=== PATIENT | male | born 1970 | race Caucasian/White ===

== ENCOUNTER 2023-02-15 08:31 | Outpatient (CLI) | payer BC, SELFPAY ==
--- NOTE | 2023-02-15 09:15 | EST_ITS ---
Patient Info Name: Noah Marshall Age: 52 years : 1970 Gender: Male Ht: 74 in Wt: 254 lbs BSA: 2.48 m2 Technical Quality: Good Exam Date: 02/15/2023 8:45 AM Exam Location: [facility] Patient Status: Outpatient Admit Date: 02/15/2023 Staff Ordering Physician: Alf Cm MD Attending Provider: Alf Cm MD Exam Type: CA stress test treadmill Study Info An exercise stress test was performed. Summary 1. 1. Negative Hemanth exercise stress test for ischemic ST changes by ECG criteria. 2. 2. Good functional capacity, achieving 10 METs of workload. 3. 3. Baseline hypertension. 4. 4. Appropriate HR response to exercise. 5. 5. Appropriate HR recovery at 1 minute post exercise. 6. 6. No imaging with stress testing. Protocol: Hemanth Stress ECG Details Stage: REST Duration (min): 2 min : 26 sec Speed (mph): 0.0 Grade (%): 0 HR (bpm): 75 SBP (mmHg): 154 DBP (mmHg): 96 METS: --- Stage: REST Duration (min): 2 min : 38 sec Speed (mph): 0.0 Grade (%): 0 HR (bpm): 74 SBP (mmHg): 154 DBP (mmHg): 96 METS: --- Stage: REST Duration (min): 24 min : 5 sec Speed (mph): 0.0 Grade (%): 0 HR (bpm): 91 SBP (mmHg): 154 DBP (mmHg): 96 METS: --- Stage: STAGE 1 Duration (min): 1 min : 0 sec Speed (mph): 1.7 Grade (%): 10 HR (bpm): 95 SBP (mmHg): 154 DBP (mmHg): 96 METS: --- Stage: STAGE 1 Duration (min): 2 min : 0 sec Speed (mph): 1.7 Grade (%): 10 HR (bpm): 106 SBP (mmHg): 154 DBP (mmHg): 96 METS: --- Stage: STAGE 1 Duration (min): 3 min : 0 sec Speed (mph): 1.7 Grade (%): 10 HR (bpm): 110 SBP (mmHg): 183 DBP (mmHg): 95 METS: --- Stage: STAGE 2 Duration (min): 1 min : 0 sec Speed (mph): 2.5 Grade (%): 12 HR (bpm): 122 SBP (mmHg): 183 DBP (mmHg): 95 METS: --- Stage: STAGE 2 Duration (min): 2 min : 0 sec Speed (mph): 2.5 Grade (%): 12 HR (bpm): 135 SBP (mmHg): 183 DBP (mmHg): 95 METS: --- Stage: STAGE 2 Duration (min): 3 min : 0 sec Speed (mph): 2.5 Grade (%): 12 HR (bpm): 139 SBP (mmHg): 177 DBP (mmHg): 93 METS: --- Stage: STAGE 3 Duration (min): 1 min : 0 sec Speed (mph): 3.4 Grade (%): 14 HR (bpm): 155 SBP (mmHg): 177 DBP (mmHg): 93 METS: --- Stage: STAGE 3 Duration (min): 2 min : 0 sec Speed (mph): 3.4 Grade (%): 14 HR (bpm): 167 SBP (mmHg): 177 DBP (mmHg): 93 METS: --- Stage: STAGE 3 Duration (min): 2 min : 30 sec Speed (mph): 3.4 Grade (%): 14 HR (bpm): 172 SBP (mmHg): 179 DBP (mmHg): 94 METS: --- Stage: RECOVERY Duration (min): 0 min : 29 sec Speed (mph): 0.0 Grade (%): 0 HR (bpm): 158 SBP (mmHg): 179 DBP (mmHg): 94 METS: ---
== END 2023-02-15 08:32 | disposition home or self-care (01) ==
LOC: CHSCARD 08:32
PROVIDERS: PCP Family Medicine; Visit Provider Family Medicine
DX: R07.89 Other chest pain (principal)
CPT/HCPCS: 93017

== ENCOUNTER 2023-02-16 00:15 | Day surgery (SDC) | payer BC, SELFPAY ==
[2023-02-05 13:42] VITALS: BMI 31.9
[2023-02-16 08:49] VITALS: BP 133/96; PULSE 67; RESP 20; TEMP 36.1; O2SAT 98; BMI 32.5
[2023-02-16] MEDS: LACTATED RINGERS 1,000 ML 150 ML IV CONT (08:57)
--- NOTE | 2023-02-16 09:38 | PM.HPGS ---
History of Present Illness History of Present Illness Consent: Risks, benefits, and alternatives have been discussed and questions answered. Patient agrees to proceed with procedure. Chief complaint: neoplasm screening Narrative: Noah Marshall is a 52 year old male Presents for screening colonoscopy. Patient's current weight appetite and bowel movements are normal. Patient denies abdominal pain. She has had no bleeding. Family history is noncontributory. Review of Systems Review of Systems: Review of systems noncontributory. [facility] Social History Social History Years smoked: 10 Tobacco type: e-cigarettes/vaping Alcohol intake: current Drinks per week: 15 Alcohol use details: BEER Substance use: never Substance use type: does not use Living arrangements: with family Spiritual care concerns: No Meds Home Medications and Allergies Allergies Allergy/AdvReac Type Severity Reaction Status Date / Time No Known Allergies Allergy Verified 02/16/23 08:48 Vital Signs Vital Signs - 24 hr 02/16/23 08:49 Temperature 97.0 F L Pulse Rate 67 Respiratory Rate 20 Blood Pressure 133/96 H Pulse Oximetry 98 Oxygen Delivery Room Air Exam Narrative: Physical exam reveals patient to be alert. Vital signs stable. HEENT exam is unremarkable. Patient is anicteric. Lungs are clear to auscultation and percussion. Heart is without murmur or extra sounds. Abdominal exam bowel sounds are present soft nontender with no organomegaly. Digital external rectal exam is normal. Assessment and Plan Assessment and plan (1) Encounter for screening colonoscopy: Code(s): Z12.11 - Encounter for screening for malignant neoplasm of colon Status: Acute Assessment and Plan: Patient presents for screening colonoscopy. Patient appears be at average risk for colon polyps. Further recommendations will be given after endoscopy.
--- NOTE | 2023-02-16 09:56 | P.PNAN_ITS ---
Anes - Initial Pre Proc Eval Procedure: Operation Date: 02/16/23 10:00 Proposed Procedures p Screening Colonoscopy - Rick Pastrana MD Date/Time: 02/16/23 09:56 Surgeon: Rick Pastrana MD Pre Op Diagnosis: neoplasm screening Patient Data Age: 52 Gender: M Height: 1.88 m Weight: 115 kg Last Vital Signs Temp 97.0 F L 02/16/23 08:49 Pulse 67 02/16/23 08:49 Resp 20 02/16/23 08:49 BP 133/96 H 02/16/23 08:49 Pulse Ox 98 02/16/23 08:49 O2 Del Method Room Air 02/16/23 08:49 Allergies Allergy/AdvReac Type Severity Reaction Status Date / Time No Known Allergies Allergy Verified 02/16/23 08:48 Patient hx anesthesia problems: none Family hx anesthesia problems: none Results Review: All pre-operative results and documents have been reviewed as part of the pre- operative evaluation. [facility] Social History Social History Years smoked: 10 Tobacco type: e-cigarettes/vaping Alcohol intake: current Drinks per week: 15 Alcohol use details: BEER Substance use: never Substance use type: does not use Living arrangements: with family Spiritual care concerns: No Anes - Eval Final PreProcedure Day of Procedure 02/16/23 09:56 Patient weight: obese Heart: regular rate and rhythm Lungs: clear to auscultation Airway: Mallampati scale class II Neurological: alert and oriented Last oral intake: >/= 8 hours ASA classification: II Emergent: no Anesthetic plan: proceed Anesthesia type and monitoring: general GIVS and standard monitoring Results Review: All pre-operative results and documents have been reviewed as part of the pre- operative evaluation. Informed Consent: The patient's anesthetic plan and its attendant risks and benefits were discussed with the patient/family/POA. Questions were solicited and answers provided to the satisfaction of the patient/family/POA.
[2023-02-16 10:34] VITALS: BP 104/73; PULSE 65; RESP 19; O2SAT 99
[2023-02-16 10:44] VITALS: BP 124/91; PULSE 64; RESP 18; O2SAT 99
[2023-02-16 10:54] VITALS: BP 135/94; PULSE 60; RESP 14; O2SAT 100
== END 2023-02-16 10:57 | disposition home or self-care (01) ==
PROVIDERS: PCP Family Medicine; Visit Provider Internal Medicine Gastroenterology
PROC: 0DJD8ZZ Inspection of Lower Intestinal Tract, Via Natural or Artificial Opening Endoscopic (ICD-10-PCS; CPT 45378; principal; 2023-02-16 10:00)
DX: Z12.11 Encounter for screening for malignant neoplasm of colon (principal); F17.290 Nicotine dependence, other tobacco product, uncomplicated; E66.9 Obesity, unspecified; Z68.32 Body mass index [BMI] 32.0-32.9, adult
CPT/HCPCS: 45378; J2704; J7120